=== PATIENT | female | born 1995 | race Caucasian/White ===

== ENCOUNTER 2017-11-13 19:33 | Emergency (ER) | payer MEDICAID ==
[~2017-11-13] VITALS: Ht 162.6 cm; Wt 110.0 kg
[2017-11-13] MEDS ORDERED: SODIUM CHLORIDE 0.9% 1,000 ML IV ONE (22:45)
[2017-11-13 23:39] LABS: HEMATOCRIT 38.5 % (36.0-48.0); HEMOGLOBIN 12.7 g/dL (12.0-16.0); MEAN CORPUSCULAR HEMOGLOBIN 25.5 pg (28.0-32.0); MEAN CORPUSCULAR VOLUME 77.1 fL (81.0-99.0); PLATELET 401 x1000/uL (130-400); RED BLOOD CELL COUNT 4.99 mill/uL (4.2-5.4)
[2017-11-13 23:58] LABS: CHLORIDE 107 mEq/L (98-107)
[2017-11-14 00:11] LABS: CLARITY URINE CLEAR (CLEAR); COLOR URINE YELLOW (YELLOW); KETONES URINE NEGATIVE (NEGATIVE); LEUKOCYTE ESTERASE URINE TRACE (NEGATIVE); NITRITE URINE NEGATIVE (NEGATIVE); OCCULT BLOOD URINE NEGATIVE (NEGATIVE); PROTEIN URINE NEGATIVE (NEGATIVE); SPECIFIC GRAVITY URINE 1.026 (1.005-1.030)
[2017-11-14] MEDS ORDERED: KETOROLAC 30MG/ML VIAL IV ONE (00:30)
[2017-11-14 02:52] VITALS: BP 105/61
== END 2017-11-14 02:50 | disposition home or self-care (01) ==
LOC: ER 20:37
DX: R11.2 Nausea with vomiting, unspecified (principal); R19.7 Diarrhea, unspecified
CPT/HCPCS: 36415; 80053; 81003; 81025; 85027; 96361; 96374; 99285; J1885; J7030; Z7610

== ENCOUNTER 2018-01-06 08:26 | Emergency (ER) | payer MEDICAID ==
[~2018-01-06] VITALS: Ht 162.6 cm; Wt 125.0 kg
[2018-01-06] MEDS ORDERED: FLUORESCEIN SODIUM 1MG/STRIP OP ONE (10:00)
[2018-01-06] MEDS ORDERED: TETRACAINE 0.5% OPHTH DROPS 4ML OP ONE (10:00)
[2018-01-06 11:18] VITALS: BP 114/71
== END 2018-01-06 11:32 | disposition home or self-care (01) ==
LOC: ER 08:49
DX: H11.421 Conjunctival edema, right eye (principal); H00.033 Abscess of eyelid right eye, unspecified eyelid; Z98.890 Other specified postprocedural states
CPT/HCPCS: 99283